=== PATIENT | female | born 1945 | race Caucasian/White ===

== ENCOUNTER 2019-03-24 00:50 | Outpatient (CLI) | payer MEDICARE, OTHER | END 2019-03-24 23:59 | disposition home or self-care (01) | LOC: DIABETIC 00:50 | PROVIDERS: ATTEND Specialist | DX: E11.65 Type 2 diabetes mellitus with hyperglycemia (principal); I10 Essential (primary) hypertension; M19.90 Unspecified osteoarthritis, unspecified site; Z79.899 Other long term (current) drug therapy | CPT/HCPCS: G0108 ==